=== PATIENT | female | born 1945 | race Hispanic/Latino ===

== ENCOUNTER 2023-04-14 19:17 | Emergency (ER) | payer OTHER ==
[~2023-04-14 19:17] MED LIST: AMLO-257 PO; LISI20TA24 PO; METO-409 PO; RISE35TA12 PO; SIMV40TA59 PO
[2023-04-14 19:40] VITALS: BP 135/52
[2023-04-14 20:26] LABS: BASOPHILS % (AUTO) 0.1 % (0.0-5.0); EOSINOPHILS % (AUTO) 1.3 % (0.0-8.0); HEMATOCRIT 39.9 % (36-48); LYMPHOCYTES % (AUTO) 16.7 % (21.0-51.0); MEAN CORPUSCULAR HEMOGLOBIN 27.7 pg (27.0-33.0); MEAN CORPUSCULAR HGB CONC 32.6 g/dL (32.0-36.0); MEAN CORPUSCULAR VOLUME 85.1 fL (79-99); MONOCYTES % (AUTO) 5.7 % (3.0-13.0); NEUTROPHILS % (AUTO) 75.9 % (40.0-77.0); PLATELET COUNT (AUTO) 219 K/uL (130-400); RED BLOOD CELL COUNT(AUTO) 4.69 MIL/uL (4.00-5.50); RED CELL DISTRIBUTION WIDTH 14.6 % (11.0-15.5); WHITE BLOOD COUNT (AUTO) 14.1 K/uL (4.8-10.8)
[2023-04-14] MEDS ORDERED: ONDANSETRON 4MG INJ IVP ONE (20:30)
[2023-04-14] MEDS ORDERED: FAMOTIDINE 20MG VIAL IV ONE (20:30)
[2023-04-14] MEDS ORDERED: LACTATED RINGERS 1000ML 1,000 ML IV ONE (20:30)
[2023-04-14 20:43] LABS: CREATININE 0.9 mg/dL (0.5-1.5); POTASSIUM 4.2 mmol/L (3.5-5.1); TOTAL PROTEIN, SERUM 7.4 g/dL (6.0-8.3)
[2023-04-14] MEDS ORDERED: METRONIDAZOLE 500MG/100ML BAG 100 ML IVPB SCH (22:00)
[2023-04-14 23:44] LABS: APPEARANCE,URINE CLEAR (CLEAR); BILIRUBIN,URINE NEGATIVE (NEGATIVE); COLOR,URINE COLORLESS (YELLOW); GLUCOSE, URINE (UA) NEGATIVE (NEGATIVE); KETONES,URINE NEGATIVE (NEGATIVE); LEUKOCYTE ESTERASE ,URINE NEGATIVE Leu/uL (NEGATIVE); NITRATE,URINE NEGATIVE (NEGATIVE); PH,URINE 5.5 (5.0-8.0); PROTEIN,URINE NEGATIVE (NEGATIVE); UROBILINOGEN,URINE 0.2 mg/dL (0.2-1.0)
[2023-04-14 23:45] LABS: WBC,URINE 0-1 /HPF (0-1)
[2023-04-15] MEDS ORDERED: ONDA4TAB10 PO (00:05)
[2023-04-15] MEDS ORDERED: METR-172 PO (00:05)
== END 2023-04-15 00:13 | disposition home or self-care (01) ==
LOC: EDH 19:17
DX: K52.9 Noninfective gastroenteritis and colitis, unspecified (principal); I10 Essential (primary) hypertension; Z79.899 Other long term (current) drug therapy
CPT/HCPCS: 99284; 96365; 96375; 96361; 84484; 80053; 83690; 85025; 81001; 36415; 93005; J7120; J3490 ×2; J2405

== ENCOUNTER → 2024-12-03 | Outpatient (CLI) | payer OTHER ==
[~2024-12-03] MED LIST changes: +METR-172 PO; +ONDA-243 PO
--- NOTE | 2024-12-04 08:51 | HMCSR ---
APPROVED REPORT EXAM: Two-dimensional and M-mode echocardiogram with Doppler and color Doppler. INDICATION ICD: R01.1 Cardiac murmur, unspecified 2D Dimensions RVDd3.1 cmLVEF(%)56.1 (>50%)LVED Vol(simp.)72.8 mL IVSd0.8 (0.7-1.1cm)FS(%)29 %LVES Vol(simp.)32.9 mL LVDd5.1 (3.8-5.6cm)LA (2D)4.4 (1.6-4.0cm)LVEF(%, simp.)55 % PWd0.7 (0.7-1.1cm)LVOT diam2.0 (1.8-2.4cm)LA ESV INDEX (4CH)33.80 mL/m2 IVSs1.0 cmLA ESV INDEX (2CH)30.40 mL/m2 LVDs3.6 (2.5-4.0cm)LA ESV INDEX (BP)34.70 mL/m2 PWs0.9 cm M-Mode Dimensions EPSS0.8 cm LA (MM)4.4 (1.6-4.0cm) Ao Root(MM)2.2 (2.0-3.7cm) Aortic Valve AoV VTI0.4 mAo Mean GR5.0 mmHgLVOT VTI0.25 m OLIVER (VMAX)2.3 cm2Al P1/2T414 msAVA (VTI) 2.3 cm2 Mitral Valve MV E Vmax56.8 cm/sDECEL Xcas348 msMR APC007 cm2 MV A Vmax70.3 cm/sP 1/2 T66 ms E/A ratio0.8MVA (PHT)3.3 cm2 TDI E/E' Xscjnk81.9E/E' Lateral8.1 Medial E' Peak V4.40 cm/sLateral E' Peak V7.00 cm/s Pulmonary Valve PV Vmax0.9 m/s PV Peak GR2.9 mmHg Tricuspid Valve TR Vmax1.9 m/sRAP (EST) 3 ziMvJNJL41.9 mmHg TR Peak GR13.9 mmHg Left Ventricle Left ventricular cavity size is normal. Septal bounce is present. There is normal left ventricular wa ll thickness. LVEF is 50-55%. The left ventricular diastolic function is normal. Right Ventricle The right ventricle is normal size. The right ventricular systolic function is normal. Atria The left atrium is borderline dilated. Possible PFO by color flow Doppler The right atrium size is no rmal. Aortic Valve The aortic valve is normal in structure and function. Mild aortic regurgitation. There is no aortic v alvular stenosis. Mitral Valve Mitral valve leaflets open well. Mitral valve leaflets appear normal. There is mild mitral valve regu rgitation noted. There is no mitral valve stenosis. Tricuspid Valve The tricuspid valve is normal in structure and function. There is no tricuspid valve regurgitation no magaly. Pulmonic Valve The pulmonary valve is normal in structure and function. There is no pulmonic valvular regurgitation. Great Vessels The aortic root is normal in size. The IVC is normal in size and collapses >50% with inspiration. Pericardium No pericardial effusion. Other Information Quality : AdequateRhythm : NSR Conclusion LVEF is 50-55%. Septal bounce is present. The left ventricular diastolic function is normal. The left atrium is borderline dilated. Possible PFO by color flow Doppler. Mild aortic regurgitation. Mild mitral regurgitation.
== END | disposition home or self-care (01) ==
LOC: RAH 13:18
PROVIDERS: ATTEND Internal Medicine
DX: I08.0 Rheumatic disorders of both mitral and aortic valves (principal); R01.1 Cardiac murmur, unspecified
CPT/HCPCS: 93306